=== PATIENT | female | born 1975 ===

== ENCOUNTER 2021-10-17 13:16 | Emergency (ER) | payer OTHER ==
[~2021-10-17] VITALS: Ht 170.2 cm; Wt 83.9 kg
[2021-10-17 13:21] VITALS: BP 128/79
[2021-10-17] MEDS ORDERED: ACETAMINOPHEN EXTRA STRENGTH 500 MG TAB PO ONE (15:00)
[2021-10-17] MEDS ORDERED: IBUPROFEN 600 MG TAB PO ONE (15:00)
[2021-10-17] MEDS ORDERED: IBUP-2213 PO (16:01)
[2021-10-17] MEDS ORDERED: ACET-10509 PO (16:01)
[2021-10-17 16:31] VITALS: BP 128/79
--- NOTE | 2021-10-17 16:32 | NUR ---
Patient discharged with v/s stable. Written and verbal after care instructions given and explained. Patient alert, oriented and verbalized understanding of instructions. Ambulatory with steady gait. All questions addressed prior to discharge. ID band removed. Patient advised to follow up with PMD. Rx of IBUPROFEN, TYLENOL given. Patient educated on indication of medication including possible reaction and side effects. Opportunity to ask questions provided and answered.
== END 2021-10-17 16:30 | disposition home or self-care (01) ==
LOC: MED 13:16
DX: S00.03XA Contusion of scalp, initial encounter (principal); S60.211A Contusion of right wrist, initial encounter; S05.11XA Contusion of eyeball and orbital tissues, right eye, initial encounter; Z90.710 Acquired absence of both cervix and uterus; Z79.899 Other long term (current) drug therapy; W18.09XA Striking against other object with subsequent fall, initial encounter; Y93.02 Activity, running; Y92.89 Other specified places as the place of occurrence of the external cause; Y99.8 Other external cause status
CPT/HCPCS: 70450; 73090; 73110; 99285

== ENCOUNTER 2022-12-28 17:14 | Emergency (ER) | payer OTHER ==
[~2022-12-28] VITALS: Ht 170.2 cm; Wt 81.6 kg
[~2022-12-28 17:14] MED LIST: ACET-10509 PO; IBUP-2213 PO
[2022-12-28 17:19] VITALS: BP 109/83
--- NOTE | 2022-12-28 17:25 | NUR ---
pt ambulatory to [facility] steady gait
[2022-12-28] MEDS ORDERED: KETOROLAC 30 MG/ML VIAL IM ONE (18:25)
[2022-12-28] MEDS ORDERED: IBUP-2213 PO (19:45)
[2022-12-28] MEDS ORDERED: CYCL-711 PO (19:51)
[2022-12-28 21:26] VITALS: BP 109/83
--- NOTE | 2022-12-28 21:26 | NUR ---
Patient discharged with v/s stable. Written and verbal after care instructions given and explained. Patient alert, oriented and verbalized understanding of instructions. Ambulatory with steady gait. All questions addressed prior to discharge. ID band removed. Patient advised to follow up with PMD. Rx of flexeril and ibuprofen given. Patient educated on indication of medication including possible reaction and side effects. Opportunity to ask questions provided and answered.
== END 2022-12-28 21:26 | disposition home or self-care (01) ==
LOC: MED 17:14
DX: S66.811A Strain of other specified muscles, fascia and tendons at wrist and hand level, right hand, initial encounter (principal); S30.0XXA Contusion of lower back and pelvis, initial encounter; Z79.899 Other long term (current) drug therapy; W17.89XA Other fall from one level to another, initial encounter; Y93.89 Activity, other specified; Y92.89 Other specified places as the place of occurrence of the external cause; Y99.8 Other external cause status
CPT/HCPCS: 72110; 73080; 81025; 96372; 99284; J1885

== ENCOUNTER 2024-02-17 17:41 | Emergency (ER) | payer OTHER ==
[~2024-02-17] VITALS: Ht 170.2 cm; Wt 79.4 kg
[~2024-02-17 17:41] MED LIST changes: +CYCL-711 PO
[2024-02-17 17:55] VITALS: BP 116/75; PULSE 66; RESP 18; TEMP 98.2; O2SAT 100
[2024-02-17] MEDS: ACETAMINOPHEN EXTRA STRENGTH 500 MG TAB PO ONE (19:47)
[2024-02-17] MEDS: BACITRACIN OINT 500 UNITS/GM PKT TP ONE (20:06)
[2024-02-17] MEDS: LIDOCAINE MPF 1% 10 MG/ML VIAL INJ ONE (20:06)
[2024-02-17] MEDS ORDERED: BACI-418 TP (21:13)
[2024-02-17] MEDS ORDERED: IBUP-2213 PO (21:13)
[2024-02-17] MEDS ORDERED: ACET-10509 PO (21:13)
== END 2024-02-17 22:19 | disposition home or self-care (01) ==
LOC: MED 17:41
DX: S91.212A Laceration without foreign body of left great toe with damage to nail, initial encounter (principal); Z79.899 Other long term (current) drug therapy; W20.8XXA Other cause of strike by thrown, projected or falling object, initial encounter; Y93.89 Activity, other specified; Y92.89 Other specified places as the place of occurrence of the external cause; Y99.8 Other external cause status
CPT/HCPCS: 11760; 73660; 99285; J2001